=== PATIENT | female | born 1980 ===

== ENCOUNTER → 2023-09-03 15:49 | Outpatient (REF) | payer OTHER, SELFPAY | LOC: CPAP 15:49 | PROVIDERS: ATTENDING PHYSICIAN Physician Assistant Medical | DX: Z01.419 Encounter for gynecological examination (general) (routine) without abnormal findings (principal) | CPT/HCPCS: G0123 ==

== ENCOUNTER → 2024-09-29 12:21 | Outpatient (REF) | payer OTHER, SELFPAY ==
[2024-09-29 15:04] LABS: Glycohemoglobin (HgbA1c) 4.7 % (4.0-5.6)
[2024-09-29 15:24] LABS: ALT (SGPT) 20 U/L (0-35); AST (SGOT) 21 U/L (14-36); Albumin 4.4 g/dl (3.5-5.0); Alkaline Phosphatase 75 U/L (38-126); Blood Urea Nitrogen 14 mg/dl (7-17); Calcium 10.2 mg/dl (8.4-10.2); Carbon Dioxide 25 mmol/L (22-30); Chloride 108 mmol/L (98-107); Glucose 92 mg/dl (70-99); Potassium 4.5 mmol/L (3.5-5.1); Sodium 142 mmol/L (135-145); Total Bilirubin 0.4 mg/dl (0.2-1.3); Total Protein 6.9 g/dl (6.3-8.2); eGFR > 60.00
== END ==
LOC: CLINIC 12:21
PROVIDERS: ATTENDING PHYSICIAN Nurse Practitioner Adult Health
DX: N76.0 Acute vaginitis (principal)
CPT/HCPCS: 36415; 80053; 83036